=== PATIENT | male | born 2000 | race Caucasian/White ===

== ENCOUNTER 2023-03-03 14:49 | Outpatient (CLI) | payer BC, SELFPAY | END 2023-03-03 14:50 | disposition home or self-care (01) | PROVIDERS: PCP Family Medicine; Visit Provider Family Medicine | DX: Z00.00 Encounter for general adult medical examination without abnormal findings (principal); R10.9 Unspecified abdominal pain; Z13.6 Encounter for screening for cardiovascular disorders; Z13.39 Encounter for screening examination for other mental health and behavioral disorders | CPT/HCPCS: 80053; 80061 ==